=== PATIENT | male | born 1945 | race Caucasian/White ===

== ENCOUNTER 2019-10-22 | Inpatient (IN) | payer MEDICARE | END 2019-11-01 17:04 | disposition E | DRG 673 | PROVIDERS: ADMIT Internal Medicine | PROC: 5A1D70Z Performance of Urinary Filtration, Intermittent, Less than 6 Hours Per Day (ICD-10-PCS; 2019-10-22) | PROC: 0JH63XZ Insertion of Tunneled Vascular Access Device into Chest Subcutaneous Tissue and Fascia, Percutaneous Approach (ICD-10-PCS; principal; 2019-10-30) | PROC: 02HV33Z Insertion of Infusion Device into Superior Vena Cava, Percutaneous Approach (ICD-10-PCS; 2019-10-30) | PROC: B548ZZA Ultrasonography of Superior Vena Cava, Guidance (ICD-10-PCS; 2019-10-30) | DX: N17.9 Acute kidney failure, unspecified (principal); E43 Unspecified severe protein-calorie malnutrition; J69.0 Pneumonitis due to inhalation of food and vomit; C22.0 Liver cell carcinoma; E87.2 Acidosis; E87.1 Hypo-osmolality and hyponatremia; I12.0 Hypertensive chronic kidney disease with stage 5 chronic kidney disease or end stage renal disease; Z66 Do not resuscitate; Z51.5 Encounter for palliative care; E87.5 Hyperkalemia; F10.10 Alcohol abuse, uncomplicated; F41.9 Anxiety disorder, unspecified; E03.9 Hypothyroidism, unspecified; G62.9 Polyneuropathy, unspecified; R13.12 Dysphagia, oropharyngeal phase; N18.6 End stage renal disease; I95.9 Hypotension, unspecified; D63.1 Anemia in chronic kidney disease; K59.00 Constipation, unspecified; Z88.0 Allergy status to penicillin; Z90.49 Acquired absence of other specified parts of digestive tract; Z68.21 Body mass index [BMI] 21.0-21.9, adult; Z79.899 Other long term (current) drug therapy; Z79.890 Hormone replacement therapy ==